=== PATIENT | female | born 1970 | race Caucasian/White ===

== ENCOUNTER 2022-11-09 10:32 | Day surgery (SDC) | payer MEDICAID ==
[~2022-11-09] VITALS: Ht 167.6 cm; Wt 77.9 kg
[2022-11-09 10:45] VITALS: BP 115/65
[2022-11-09] MEDS ORDERED: normal saline 1000ml 1,000 ML IV PRN (10:50)
[2022-11-09] MEDS ORDERED: FERR325T7 PO (11:14)
[2022-11-09] MEDS ORDERED: FURO20TA4 PO (11:14)
[2022-11-09] MEDS ORDERED: METO-395 PO (11:14)
[2022-11-09] MEDS ORDERED: ALBU90AE2 INH (11:14)
[2022-11-09] MEDS ORDERED: SPIR50TA5 PO (11:14)
[2022-11-09] MEDS ORDERED: OMEP20CA16 PO (11:14)
[2022-11-09 11:16] LABS: BASOPHILS # (AUTO) 0.1 X10'3 (0-0.2); BASOPHILS % (AUTO) 1.7 % (0-1); EOSINOPHILS # (AUTO) 0.1 X10'3 (0-0.9); EOSINOPHILS % (AUTO) 1.5 % (0-6); HEMATOCRIT 37.9 % (35.0-45.0); HEMOGLOBIN 12.2 g/dl (12.0-16.0); LYMPHOCYTES # (AUTO) 2.4 X10'3 (1.1-4.8); LYMPHOCYTES % (AUTO) 35.9 % (21-51); MEAN CORPUSCULAR HEMOGLOBIN 23.2 PG (27.0-31.0); MEAN CORPUSCULAR HGB CONC 32.2 g/dL (33.0-36.5); MEAN CORPUSCULAR VOLUME 72.1 FL (78-98); MEAN PLATELET VOLUME 7.4 FL (7.4-10.4); MONOCYTES # (AUTO) 0.5 X10'3 (0-0.9); MONOCYTES % (AUTO) 7.3 % (2-12); NEUTROPHILS # (AUTO) 3.6 X10'3 (1.8-7.7); NEUTROPHILS % (AUTO) 53.6 % (42-75); PLATELET COUNT 369 X10'3 (140-440); RED BLOOD COUNT 5.26 X10'6 (4.20-5.60); RED CELL DISTRIBUTION WIDTH 19.8 % (11.5-14.5); WHITE BLOOD COUNT 6.8 X10'3 (4.5-11.0)
[2022-11-09 11:30] LABS: ANISOCYTOSIS 2+; MICROCYTOSIS 11; PLATELET ESTIMATE NORMAL
[2022-11-09] MEDS ORDERED: LIDOcaine 1% 30ml preserv. free vial SQ STA (13:36)
--- NOTE | 2022-11-09 14:15 | NUR ---
Procedure canceled per Dr. De Santiago. IV DCed, yoselinula intact. Patient to resume current diet, medications, and follow up with PCP as scheduled. Patient sent with all known belongings. Ambulated with spouse.
== END 2022-11-09 14:15 | disposition home or self-care (01) ==
LOC: SSTAY O 10:32
PROVIDERS: ATTEND Radiology Diagnostic Radiology
DX: K76.89 Other specified diseases of liver (principal); Z53.8 Procedure and treatment not carried out for other reasons; Z88.0 Allergy status to penicillin
CPT/HCPCS: 36415; 85025; 85610; J7030; 85008; C1729